=== PATIENT | female | born 1945 | race Caucasian/White ===

== ENCOUNTER 2017-11-23 18:58 | Inpatient (IN) ==
[2017-11-23] MEDS ORDERED: LEVOFLOXACIN INJ 750 MG in PREMIX 1 EACH IV STA (19:57)
[2017-11-23] MEDS ORDERED: ONDANSETRON 4 MG/2 ML VIAL IV STA (19:57)
[2017-11-23] MEDS ORDERED: PANTOPRAZOLE 40 MG VIAL IV STA (19:57)
[2017-11-23] MEDS ORDERED: SODIUM CHLORIDE 0.9% 1,000 ML IV STA (19:57)
[2017-11-23] MEDS ORDERED: DICYCLOMINE 20 MG/2 ML AMP IM ONE (19:57)
[2017-11-23] MEDS ORDERED: PANTOPRAZOLE 40 MG VIAL IV ONE (20:09)
[2017-11-23] MEDS ORDERED: ONDANSETRON 4 MG/2 ML VIAL ONE (20:10)
[2017-11-23] MEDS ORDERED: LEVOFLOXACIN INJ 150 ML IV ONE (20:10)
[2017-11-23 20:16] LABS: Basophils % 0.4 % (0.0-0.8); Eosinophils % 0.1 % (0.00-10.9); Hemoglobin 13.7 GM/DL (12.0-16.0); Immature Granulocytes % 0.7 %; Immature Granulocytes Absolute 0.07 #; Lymphocytes % 19.2 % (21.3-54.2); Mean Corpuscular HGB Conc 32.6 GM/DL (32-36); Mean Corpuscular Hemoglobin 26 PG (27-34); Mean Corpuscular Volume 80.6 FL (87-102); Monocytes # 0.7 10*3/uL (0.11-0.8); Monocytes % 6.3 % (1.7-12.7); Neutrophils # 7.6 10*3/uL (1.4-7.4); Neutrophils % 73.3 % (38.7-73.9); Platelet Count 227 T/CUMM (130-400); Red Blood Count 5.21 MC/CUMM (3.8-5.5); Red Cell Distribution Width 14.8 % (9.3-17.3); White Blood Count 10.4 T/CUMM (4-12)
[2017-11-23 20:23] LABS: Apearance,Urine CLOUDY (Clear); Bilirubin,Urine Negative (Negative); Blood, Urine Negative (Negative); Glucose,Urine (UA) Negative (Negative); Ketones,Urine Negative (Negative); Nitrite,Urine Negative (Negative); Protein,Urine Negative; Urine Color Yellow (Yellow); Urine Specific Gravity 1.009 (1.001-1.035); Urine Urobilinogen < 2.0 EU/DL (0.2-1.0); WBC,Urine 4 /HPF (0-6)
[2017-11-23 20:35] LABS: Lactic Acid 2.1 MMOL/L (0.4-2.0)
[2017-11-23 20:42] LABS: Albumin 4.6 G/DL (3.4-5.0); Bilirubin,Total 0.7 MG/DL (0.2-1.0); Calcium 11.3 MG/DL (8.5-10.1); Osmolality,Calculated 281.1 MOS/KG (273-304); Potassium 3.3 MMOL/L (3.5-5.1); Total Protein 8.1 G/DL (6.4-8.3)
[2017-11-24] MEDS ORDERED: DEXTROSE 50% 25 GM/50 ML VIAL IV PRN (00:01)
[2017-11-24] MEDS ORDERED: ALBUTEROL/IPRATROPIUM 3 ML NEB RESP TX PRN (00:01)
[2017-11-24] MEDS ORDERED: ONDANSETRON 4 MG/2 ML VIAL IV PRN (00:01)
[2017-11-24] MEDS ORDERED: GLUCAGON 1 MG VIAL IM PRN (00:01)
[2017-11-24] MEDS: DICYCLOMINE 10 MG CAPSULE PO SCH ×7 (00:15→23:34)
[2017-11-24] MEDS: SODIUM CHLORIDE 0.45% 1,000 ML IV SCH ×3 (01:40→16:51)
[2017-11-24] MEDS: AMITRIPTYLINE 50 MG TABLET PO SCH ×2 (01:45→21:33)
[2017-11-24] MEDS: INSULIN REGULAR 100 UNIT/ML SUBCUT SCH ×5 (04:33→21:33)
[2017-11-24 07:20] LABS: Basophils % 0.3 % (0.0-0.8); Eosinophils % 0.2 % (0.00-10.9); Hematocrit 35.7 VOL% (35.7-47.0); Hemoglobin 11.3 GM/DL (12.0-16.0); Immature Granulocytes % 0.6 %; Immature Granulocytes Absolute 0.06 #; Lymphocytes # 2.9 10*3/uL (1.4-4.0); Lymphocytes % 29.6 % (21.3-54.2); Mean Corpuscular HGB Conc 31.7 GM/DL (32-36); Mean Corpuscular Hemoglobin 26 PG (27-34); Mean Corpuscular Volume 82.4 FL (87-102); Mean Platelet Volume 11.1 FL (9.6-12.0); Monocytes # 0.8 10*3/uL (0.11-0.8); Monocytes % 8.5 % (1.7-12.7); Neutrophils # 5.9 10*3/uL (1.4-7.4); Neutrophils % 60.8 % (38.7-73.9); Platelet Count 195 T/CUMM (130-400); Red Blood Count 4.33 MC/CUMM (3.8-5.5); Red Cell Distribution Width 14.7 % (9.3-17.3); White Blood Count 9.7 T/CUMM (4-12)
[2017-11-24 07:47] LABS: Albumin 3.6 G/DL (3.4-5.0); Bilirubin,Total 1.1 MG/DL (0.2-1.0); Calcium 9.7 MG/DL (8.5-10.1); Osmolality,Calculated 278.8 MOS/KG (273-304); Potassium 3.7 MMOL/L (3.5-5.1); Total Protein 6.5 G/DL (6.4-8.3)
[2017-11-24] MEDS ORDERED: PANTOPRAZOLE 40 MG VIAL IV SCH (09:00)
[2017-11-24] MEDS: ASPIRIN 325 MG TABLET PO SCH (10:51)
[2017-11-24] MEDS: POTASSIUM BICARB EFFERVESCENT 25 MEQ TABLET PO SCH ×2 (10:52→21:31)
[2017-11-24] MEDS: ARFORMOTEROL 15 MCG/2 ML NEB RESP TX SCH (19:40)
[2017-11-24] MEDS ORDERED: SERTRALINE 100 MG TABLET PO SCH (21:00)
[2017-11-24] MEDS ORDERED: PRAMIPEXOLE 1 MG TABLET PO SCH (21:00)
[2017-11-24] MEDS: GABAPENTIN 100 MG CAPSULE PO SCH (21:31)
[2017-11-24] MEDS: POTASSIUM CHLORIDE 20 MEQ TABLET PO SCH (21:32)
[2017-11-24] MEDS: POLYCARBOPHIL 625 MG TABLET PO SCH (21:32)
[2017-11-24] MEDS: metFORMIN 500 MG TABLET PO SCH (21:32)
[2017-11-25 07:13] LABS: Basophils % 0.6 % (0.0-0.8); Eosinophils # 0.2 10*3/uL (0.0-0.87); Eosinophils % 2.5 % (0.00-10.9); Hematocrit 35.1 VOL% (35.7-47.0); Hemoglobin 11.1 GM/DL (12.0-16.0); Immature Granulocytes % 0.6 %; Immature Granulocytes Absolute 0.04 #; Lymphocytes # 2.2 10*3/uL (1.4-4.0); Lymphocytes % 32.3 % (21.3-54.2); Mean Corpuscular HGB Conc 31.6 GM/DL (32-36); Mean Corpuscular Hemoglobin 26 PG (27-34); Mean Corpuscular Volume 83.2 FL (87-102); Mean Platelet Volume 11.1 FL (9.6-12.0); Monocytes # 0.6 10*3/uL (0.11-0.8); Monocytes % 9.1 % (1.7-12.7); Neutrophils # 3.8 10*3/uL (1.4-7.4); Neutrophils % 54.9 % (38.7-73.9); Platelet Count 158 T/CUMM (130-400); Red Blood Count 4.22 MC/CUMM (3.8-5.5); White Blood Count 6.9 T/CUMM (4-12)
[2017-11-25] MEDS: ARFORMOTEROL 15 MCG/2 ML NEB RESP TX SCH (07:16)
[2017-11-25 07:37] VITALS: BP 154/78
[2017-11-25 07:43] LABS: Calcium 8.5 MG/DL (8.5-10.1); Osmolality,Calculated 275.8 MOS/KG (273-304)
[2017-11-25] MEDS: INSULIN REGULAR 100 UNIT/ML SUBCUT SCH ×2 (08:17→11:29)
[2017-11-25] MEDS: SODIUM CHLORIDE 0.45% 1,000 ML IV SCH (08:17)
[2017-11-25] MEDS: POLYCARBOPHIL 625 MG TABLET PO SCH (08:23)
[2017-11-25] MEDS: ASPIRIN 325 MG TABLET PO SCH (08:24)
[2017-11-25] MEDS: metFORMIN 500 MG TABLET PO SCH (08:24)
[2017-11-25] MEDS: POTASSIUM CHLORIDE 20 MEQ TABLET PO SCH (08:24)
[2017-11-25] MEDS: GABAPENTIN 100 MG CAPSULE PO SCH (08:24)
[2017-11-25] MEDS: DICYCLOMINE 10 MG CAPSULE PO SCH ×2 (08:25→08:26)
[2017-11-25] MEDS: POTASSIUM BICARB EFFERVESCENT 25 MEQ TABLET PO SCH (08:26)
[2017-11-25] MEDS ORDERED: METOPROLOL SUCCINATE XL 100 MG TABLET PO SCH (09:00)
[2017-11-25] MEDS ORDERED: CALCIUM (CARBONATE)/VITAMIN D 500 MG-200 UNIT TABLET PO SCH (09:00)
[2017-11-25] MEDS ORDERED: FUROSEMIDE 40 MG TABLET PO SCH (09:00)
[2017-11-25] MEDS ORDERED: LOSARTAN 50 MG TABLET PO SCH (09:00)
[2017-11-25] MEDS ORDERED: PANTOPRAZOLE 40 MG TABLET PO SCH (09:00)
[2017-11-25] MEDS ORDERED: amLODIPine 10 MG TABLET PO SCH (09:00)
[2017-11-25] MEDS ORDERED: RALOXIFENE 60 MG TABLET PO SCH (09:00)
[2017-11-25] MEDS ORDERED: SIMVASTATIN 40 MG TABLET PO SCH (09:00)
== END 2017-11-25 11:52 | disposition home or self-care (01) | DRG 392 ==
LOC: N.ED 18:58 → N.EDINP 20:55 → N.5E 22:50
PROVIDERS: ADMIT Internal Medicine; ATTEND Internal Medicine

== ENCOUNTER 2020-01-28 10:04 | Observation (INO) ==
[2020-01-28 11:33] LABS: INR 1.1; PT Patient Result 11.6 SECS (9.8-11.9)
[2020-01-28 11:38] LABS: Apearance,Urine CLEAR (Clear); Bilirubin,Urine Negative (Negative); Blood, Urine Negative (Negative); Glucose,Urine (UA) Negative (Negative); Ketones,Urine Negative (Negative); Nitrite,Urine Negative (Negative); Protein,Urine Negative; RBC,Urine 1 /HPF (0-4); Squamous Epithelial Cell,Urine Occasional /HPF (0-10); Urine Color Straw (Yellow); Urine Specific Gravity 1.004 (1.001-1.035); Urine Urobilinogen < 2.0 EU/DL (0.2-1.0); WBC,Urine 21 /HPF (0-6)
[2020-01-28 11:48] LABS: Alanine Aminotransferase 35 U/L (13-56); Albumin 3.8 G/DL (3.4-5.0); Alkaline Phosphatase 78 U/L (45-117); Aspartate Amino Transferase 30 U/L (0-37); Bilirubin,Total < 0.39 MG/DL (0.2-1.0); Blood Urea Nitrogen 13 MG/DL (7-18); Calcium 9.3 MG/DL (8.5-10.1); Estimated Glom Filtration Rate 93 ML/MIN; Glucose 129 MG/DL (74-106); Osmolality,Calculated 280.4 MOS/KG (273-304); Total Protein 7.1 G/DL (6.4-8.3)
[2020-01-28 11:49] LABS: Basophils % 0.6 % (0.0-0.8); Eosinophils # 0.1 10*3/uL (0.0-0.87); Hematocrit 38.3 VOL% (35.7-47.0); Immature Granulocytes % 0.5 %; Immature Granulocytes Absolute 0.03 #; Lymphocytes % 30.3 % (21.3-54.2); Mean Corpuscular HGB Conc 30.5 GM/DL (32-36); Mean Platelet Volume 11.7 FL (9.6-12.0); Monocytes % 6.9 % (1.7-12.7); Neutrophils % 59.7 % (38.7-73.9); Platelet Count 192 T/CUMM (130-400); Red Blood Count 4.79 MC/CUMM (3.8-5.5); Red Cell Distribution Width 16.9 % (9.3-17.3); White Blood Count 6.6 T/CUMM (4-12)
[2020-01-28 11:55] LABS: Hemoglobin 11.7 GM/DL (12.0-16.0)
[2020-01-28] MEDS ORDERED: cefTRIAXone 1,000 MG in SODIUM CHLORIDE 0.9% 100 ML IV STA (11:58)
[2020-01-28 12:06] LABS: Ferritin 10.4 ng/ml (8-252)
[2020-01-28] MEDS ORDERED: ACETAMINOPHEN 325 MG TABLET PO PRN (12:48)
[2020-01-28] MEDS ORDERED: ONDANSETRON 4 MG/2 ML VIAL IV PRN (12:48)
[2020-01-28] MEDS ORDERED: DEXTROSE 50% 25 GM/50 ML VIAL IV PRN (12:48)
[2020-01-28] MEDS ORDERED: GLUCAGON 1 MG VIAL IM PRN (12:48)
[2020-01-28] MEDS: SODIUM CHLORIDE 0.45% 1,000 ML IV SCH ×2 (13:18→23:27)
[2020-01-28] MEDS ORDERED: cefTRIAXone 1,000 MG in SYRINGE 1 EACH IV SCH (16:00)
[2020-01-28] MEDS: INSULIN LISPRO 100 UNIT/ML SUBCUT SCH ×2 (16:03→21:29)
[2020-01-28] MEDS ORDERED: DICYCLOMINE 20 MG/2 ML AMP IM SCH (17:00)
[2020-01-28] MEDS: DICYCLOMINE 10 MG CAPSULE PO SCH ×2 (18:04→21:28)
[2020-01-28] MEDS: ARFORMOTEROL 15 MCG/2 ML NEB RESP TX SCH (19:03)
[2020-01-28] MEDS: IPRATROPIUM 500 MCG/2.5 ML NEB RESP TX SCH (19:03)
[2020-01-28] MEDS: POLYCARBOPHIL 625 MG TABLET PO SCH (21:27)
[2020-01-28] MEDS: CALCIUM (CARBONATE)/VITAMIN D 500 MG-200 UNIT TABLET PO SCH (21:27)
[2020-01-28] MEDS: PRAMIPEXOLE 0.25 MG TABLET PO SCH (21:27)
[2020-01-28] MEDS: ENOXAPARIN 40 MG/0.4 ML SYRINGE SUBCUT SCH (21:27)
[2020-01-28] MEDS: POTASSIUM CHLORIDE 20 MEQ TABLET PO SCH (21:28)
[2020-01-28] MEDS: GABAPENTIN 100 MG CAPSULE PO SCH (21:28)
[2020-01-28] MEDS: DOCUSATE SODIUM 100 MG CAPSULE PO SCH (21:28)
[2020-01-28] MEDS: metFORMIN 500 MG TABLET PO SCH (21:29)
[2020-01-29 07:00] LABS: Basophils % 0.6 % (0.0-0.8); Eosinophils # 0.1 10*3/uL (0.0-0.87); Eosinophils % 2.3 % (0.00-10.9); Hematocrit 34.6 VOL% (35.7-47.0); Hemoglobin 10.5 GM/DL (12.0-16.0); Immature Granulocytes % 0.6 %; Immature Granulocytes Absolute 0.03 #; Lymphocytes # 1.8 10*3/uL (1.4-4.0); Lymphocytes % 34.4 % (21.3-54.2); Mean Corpuscular HGB Conc 30.3 GM/DL (32-36); Mean Corpuscular Volume 79.4 FL (87-102); Mean Platelet Volume 11.6 FL (9.6-12.0); Monocytes % 7.8 % (1.7-12.7); Neutrophils % 54.3 % (38.7-73.9); Platelet Count 171 T/CUMM (130-400); Red Blood Count 4.36 MC/CUMM (3.8-5.5); White Blood Count 5.1 T/CUMM (4-12)
[2020-01-29 07:18] LABS: Calcium 9.4 MG/DL (8.5-10.1); Osmolality,Calculated 273.7 MOS/KG (273-304)
[2020-01-29] MEDS: SODIUM CHLORIDE 0.45% 1,000 ML IV SCH ×2 (08:05→14:10)
[2020-01-29] MEDS: INSULIN LISPRO 100 UNIT/ML SUBCUT SCH ×4 (08:05→21:18)
[2020-01-29] MEDS ORDERED: PRAMIPEXOLE 0.5 MG PO SCH (09:00)
[2020-01-29] MEDS ORDERED: NON-FORMULARY MEDICATION (Omeprazole 40 MG) PO SCH (09:00)
[2020-01-29] MEDS ORDERED: PANTOPRAZOLE 40 MG TABLET PO SCH (09:00)
[2020-01-29] MEDS ORDERED: CALCIUM CARBONATE VITAMIN D3 PO SCH (09:00)
[2020-01-29] MEDS: COENZYME Q10 100 MG CAPSULE PO SCH (09:32)
[2020-01-29] MEDS: ROSUVASTATIN 20 MG TABLET PO SCH (09:32)
[2020-01-29] MEDS: METOPROLOL SUCCINATE XL 50 MG TABLET PO SCH (09:33)
[2020-01-29] MEDS: LOSARTAN 50 MG TABLET PO SCH (09:33)
[2020-01-29] MEDS: POLYCARBOPHIL 625 MG TABLET PO SCH ×2 (09:33→21:16)
[2020-01-29] MEDS: POTASSIUM CHLORIDE 20 MEQ TABLET PO SCH ×2 (09:33→21:16)
[2020-01-29] MEDS: DICYCLOMINE 10 MG CAPSULE PO SCH ×4 (09:33→21:17)
[2020-01-29] MEDS: GABAPENTIN 100 MG CAPSULE PO SCH ×2 (09:33→21:16)
[2020-01-29] MEDS: RALOXIFENE 60 MG TABLET PO SCH (09:33)
[2020-01-29] MEDS: metFORMIN 500 MG TABLET PO SCH ×2 (09:33→21:17)
[2020-01-29] MEDS: amLODIPine 10 MG TABLET PO SCH (09:34)
[2020-01-29] MEDS: ASPIRIN EC 81 MG TABLET PO SCH (09:34)
[2020-01-29] MEDS: PANTOPRAZOLE 40 MG TABLET PO SCH (09:34)
[2020-01-29] MEDS: DOCUSATE SODIUM 100 MG CAPSULE PO SCH ×2 (09:34→21:17)
[2020-01-29] MEDS: CALCIUM (CARBONATE)/VITAMIN D 500 MG-200 UNIT TABLET PO SCH ×2 (09:34→21:16)
[2020-01-29] MEDS: FUROSEMIDE 40 MG TABLET PO SCH (09:34)
[2020-01-29] MEDS: IPRATROPIUM 500 MCG/2.5 ML NEB RESP TX SCH ×3 (09:40→18:50)
[2020-01-29] MEDS: ARFORMOTEROL 15 MCG/2 ML NEB RESP TX SCH ×2 (10:14→18:50)
[2020-01-29] MEDS: cefTRIAXone 1,000 MG in SYRINGE 1 EACH IV SCH (13:19)
[2020-01-29] MEDS: ENOXAPARIN 40 MG/0.4 ML SYRINGE SUBCUT SCH (21:15)
[2020-01-29] MEDS: PRAMIPEXOLE 0.25 MG TABLET PO SCH (21:16)
[2020-01-30 05:07] LABS: Basophils % 0.5 % (0.0-0.8); Eosinophils # 0.2 10*3/uL (0.0-0.87); Eosinophils % 2.8 % (0.00-10.9); Hematocrit 34.7 VOL% (35.7-47.0); Hemoglobin 10.6 GM/DL (12.0-16.0); Immature Granulocytes % 0.4 %; Immature Granulocytes Absolute 0.02 #; Lymphocytes # 2.2 10*3/uL (1.4-4.0); Lymphocytes % 38.7 % (21.3-54.2); Mean Corpuscular HGB Conc 30.5 GM/DL (32-36); Mean Corpuscular Volume 79.2 FL (87-102); Mean Platelet Volume 11.2 FL (9.6-12.0); Monocytes % 7.9 % (1.7-12.7); Neutrophils % 49.7 % (38.7-73.9); Platelet Count 174 T/CUMM (130-400); Red Blood Count 4.38 MC/CUMM (3.8-5.5); White Blood Count 5.7 T/CUMM (4-12)
[2020-01-30 05:20] LABS: Calcium 9.7 MG/DL (8.5-10.1); Osmolality,Calculated 276.5 MOS/KG (273-304)
[2020-01-30] MEDS: IPRATROPIUM 500 MCG/2.5 ML NEB RESP TX SCH ×3 (07:05→19:53)
[2020-01-30] MEDS: ARFORMOTEROL 15 MCG/2 ML NEB RESP TX SCH ×2 (07:05→19:53)
[2020-01-30] MEDS: INSULIN LISPRO 100 UNIT/ML SUBCUT SCH ×4 (07:32→21:33)
[2020-01-30] MEDS: SODIUM CHLORIDE 0.45% 1,000 ML IV SCH (08:03)
[2020-01-30] MEDS: GABAPENTIN 100 MG CAPSULE PO SCH ×2 (08:42→21:31)
[2020-01-30] MEDS: COENZYME Q10 100 MG CAPSULE PO SCH (08:43)
[2020-01-30] MEDS: CALCIUM (CARBONATE)/VITAMIN D 500 MG-200 UNIT TABLET PO SCH ×2 (08:43→21:30)
[2020-01-30] MEDS: ROSUVASTATIN 20 MG TABLET PO SCH (08:43)
[2020-01-30] MEDS: LOSARTAN 50 MG TABLET PO SCH (08:43)
[2020-01-30] MEDS: METOPROLOL SUCCINATE XL 50 MG TABLET PO SCH (08:44)
[2020-01-30] MEDS: POTASSIUM CHLORIDE 20 MEQ TABLET PO SCH ×2 (08:44→21:32)
[2020-01-30] MEDS: DICYCLOMINE 10 MG CAPSULE PO SCH ×4 (08:44→21:33)
[2020-01-30] MEDS: PANTOPRAZOLE 40 MG TABLET PO SCH (08:44)
[2020-01-30] MEDS: ASPIRIN EC 81 MG TABLET PO SCH (08:44)
[2020-01-30] MEDS: amLODIPine 10 MG TABLET PO SCH (08:44)
[2020-01-30] MEDS: FUROSEMIDE 40 MG TABLET PO SCH (08:45)
[2020-01-30] MEDS: DOCUSATE SODIUM 100 MG CAPSULE PO SCH ×2 (08:45→21:30)
[2020-01-30] MEDS: POLYCARBOPHIL 625 MG TABLET PO SCH ×2 (08:45→21:32)
[2020-01-30] MEDS: RALOXIFENE 60 MG TABLET PO SCH (08:45)
[2020-01-30] MEDS: metFORMIN 500 MG TABLET PO SCH ×2 (08:45→21:32)
[2020-01-30] MEDS: cefTRIAXone 1,000 MG in SYRINGE 1 EACH IV SCH (13:30)
[2020-01-30] MEDS: ENOXAPARIN 40 MG/0.4 ML SYRINGE SUBCUT SCH (21:30)
[2020-01-30] MEDS: PRAMIPEXOLE 0.25 MG TABLET PO SCH (21:30)
[2020-01-31] MEDS: INSULIN LISPRO 100 UNIT/ML SUBCUT SCH (07:27)
[2020-01-31] MEDS: IPRATROPIUM 500 MCG/2.5 ML NEB RESP TX SCH (07:37)
[2020-01-31] MEDS: ARFORMOTEROL 15 MCG/2 ML NEB RESP TX SCH (07:37)
[2020-01-31] MEDS: POTASSIUM CHLORIDE 20 MEQ TABLET PO SCH (09:49)
[2020-01-31] MEDS: RALOXIFENE 60 MG TABLET PO SCH (09:50)
[2020-01-31] MEDS: CALCIUM (CARBONATE)/VITAMIN D 500 MG-200 UNIT TABLET PO SCH (09:50)
[2020-01-31] MEDS: GABAPENTIN 100 MG CAPSULE PO SCH (09:50)
[2020-01-31] MEDS: ROSUVASTATIN 20 MG TABLET PO SCH (09:50)
[2020-01-31] MEDS: LOSARTAN 50 MG TABLET PO SCH (09:51)
[2020-01-31] MEDS: PANTOPRAZOLE 40 MG TABLET PO SCH (09:51)
[2020-01-31] MEDS: COENZYME Q10 100 MG CAPSULE PO SCH (09:51)
[2020-01-31] MEDS: ASPIRIN EC 81 MG TABLET PO SCH (09:51)
[2020-01-31] MEDS: POLYCARBOPHIL 625 MG TABLET PO SCH (09:51)
[2020-01-31] MEDS: DOCUSATE SODIUM 100 MG CAPSULE PO SCH (09:52)
[2020-01-31] MEDS: METOPROLOL SUCCINATE XL 50 MG TABLET PO SCH (09:52)
[2020-01-31] MEDS: DICYCLOMINE 10 MG CAPSULE PO SCH (09:52)
[2020-01-31] MEDS: amLODIPine 10 MG TABLET PO SCH (09:52)
[2020-01-31] MEDS: metFORMIN 500 MG TABLET PO SCH (09:52)
[2020-01-31] MEDS: FUROSEMIDE 40 MG TABLET PO SCH (09:52)
[2020-01-31 11:31] VITALS: BP 144/69
== END 2020-01-31 11:35 | disposition home or self-care (01) ==
LOC: EDBD → EDUNIT# → N.ED 10:04 → N.EDINP 10:04 → N.3E 15:17
PROVIDERS: ADMIT Internal Medicine; ATTEND Internal Medicine